=== PATIENT | male | born 1970 | race Caucasian/White ===

== ENCOUNTER 2017-01-17 22:38 | Emergency (ER) | payer BC ==
--- NOTE | 2017-01-18 06:55 | ER ---
ADMIT: 01/17/2017 RM/LOC: ER [facility] MR#: [id number] [id number] RADHA CHOW [address] [place] [address] Emergency Room Report SEX: M AGE: 46 : 1970 DATE: 01/17/2017 TIME17: 2238 hours. Please refer to my T-sheet for complete H and P. HISTORY OF PRESENT ILLNESS: Briefly, the patient comes in with cough persisted for 2-3 days. He says he does not think he can continue to work because it is just severe coughing. Maybe a little runny nose, and he is bringing up some phlegm. PHYSICAL EXAMINATION: VITAL SIGNS: Here are stable. His saturations are 96%. Respiratory rate 18. GENERAL: No acute distress. HEENT: Mild rhinorrhea. LUNGS: With a trace of wheeze. HEART: Regular. ABDOMEN: Soft. EMERGENCY DEPARTMENT COURSE: I gave him Zithromax 500 mg p.o., two puffs of albuterol and he is ready for discharge. ASSESSMENT: Bronchitis and reactive airways. PLAN: Albuterol q.4 hours p.r.n., Z-Renan. No work for couple days. Rest, fluids, Tylenol. Follow up with Dr. Dawson. Harvey Graham MD/ ajay JOB #: [id number] CC: Harvey Graham MD, Attending Physician Amador Dawson MD, Family Physician
== END 2017-01-18 00:40 | disposition home or self-care (01) ==
LOC: ER 22:38
DX: J45.909 Unspecified asthma, uncomplicated (principal)